=== PATIENT | male | born 1975 | race Caucasian/White ===

== ENCOUNTER → 2016-08-29 | Outpatient (CLI) | payer OTHER ==
[~2016-08-29] MED LIST: CELEXA40 MG PO; CITALOPRAM HBR20 MG PO; LORTAB LIQUID D15 ML PO; POLY VI PO; PRILOSEC DPS20 MG PO; VITAMIN D31000 UNIT PO; ZESTRIL DPS20 MG PO; ZOFRAN ODT4 MG PO
== END | disposition home or self-care (01) ==
LOC: RAD.S 08-28 11:12 → NUE 14:42 → RAD.S 14:42
DX: Z01.818 Encounter for other preprocedural examination (principal); E66.9 Obesity, unspecified; L03.116 Cellulitis of left lower limb; L03.115 Cellulitis of right lower limb
CPT/HCPCS: 258

== ENCOUNTER 2016-11-14 05:48 | Inpatient (IN) | payer SELFPAY ==
[~2016-11-14] VITALS: Ht 190.5 cm; Wt 232.1 kg
--- NOTE | 2016-11-16 16:24 | CO ---
ADMIT: 11/14/2016 RM/LOC: 617 [facility] MR#: [id number] [address] [address] LUPILLO CASEY [address] [place] [address] Consultation SEX: M AGE: 41 : 1975 DATE OF CONSULTATION: 11/14/2016 ATTENDING PHYSICIAN: Jack Thomas CONSULTING PHYSICIAN: Chad Caro MD REASON FOR CONSULTATION: Assistance with medical management. HISTORY OF PRESENT ILLNESS: The patient is a 41-year-old gentleman with a past medical history of morbid obesity, depression, obstructive sleep apnea, and chronic lower extremity lymphedema, who presents to [facility] today to undergo a scheduled laparoscopic vertical sleeve gastrectomy done by Dr. Thomas due to his morbid obesity that has been refractory to other treatments. Overall, the operative intervention went well today, and the patient is seen postoperatively. The patient notes that right now, his pain is approximately 2 or 3 out of 10 localized around the incisions. He denies chest pain, shortness of breath. Does have some mild nausea that has passed. The patient notes that he is not really hungry right now. Has a Rosen catheter in place, but also notes he has had some small amounts of flatus since arriving to the floor. PAST MEDICAL HISTORY: 1. Morbid obesity with a BMI of 63. 2. History of psoriasis with chronic lower extremity lymphedema. 3. Depression. 4. History of hernia repair in 1983. 5. History of left knee surgery in 1993. 6. History of prior lower leg severe cellulitis ulcerations. 7. Obstructive sleep apnea, not on CPAP. 8. Vitamin D deficiency. 9. History of alcoholism in the past. ALLERGIES: NO KNOWN MEDICAL ALLERGIES. MEDICATIONS: His current home medications include: 1. Phentermine. 2. Lasix. 3. Oxycodone. 4. Potassium. 5. Celexa. 6. Vitamin D. FAMILY HISTORY: Father in his 50s with heart problems. Mother is alive. REVIEW OF SYSTEMS: As noted above. All other systems reviewed and are negative. PHYSICAL EXAMINATION: VITAL SIGNS: 98.4, 85, 20, 172/84, 94% on 2 L of nasal ADMIT: 11/14/2016 RM/LOC: 617 [facility] MR#: [id number] [address] [address] LUPILLO CASEY [address] [place] [address] Consultation SEX: M AGE: 41 : 1975 cannula. GENERAL: This is a morbidly obese gentleman, in no apparent distress. He is alert, awake, oriented, and cooperative and pleasant to the examiner. HEENT: Normocephalic and atraumatic. Mucous membranes are moist. NECK: Supple. LUNGS: Clear. HEART: Regular. ABDOMEN: Obese and soft. It is nondistended right now. His bowel sounds are present. EXTREMITIES: He has changes to chronic lymphedema and psoriasis. Lower extremities, no obvious signs of infection are noted. NEUROLOGIC: Cranial nerves are intact. No focal deficit noted. LABORATORY AND X-RAY DATA: Lab work is reviewed from his preop labs on November 08. Sodium 138, potassium 3.8, BUN is 14, creatinine 0.7, his bicarb is 32, his chloride is 101. AST 23, ALT 35, alkaline phosphatase 104, total bilirubin 0.6. Hemoglobin 16.9, platelets 201,000, white count 10.2. Random glucose was 105. ASSESSMENT AND PLAN: 1. Morbid obesity refractory to medical therapies status post vertical sleeve gastrectomy. 2. Hypertension. 3. Depression. 4. Chronic edema/lymphedema/stasis dermatitis. 5. Obstructive sleep apnea, noncompliant with CPAP at home. At this point, the patient overall seems to be doing well. He is quite hypertensive postop night. Sounds like he has had some prior history of ADMIT: 11/14/2016 RM/LOC: 617 [facility] MR#: [id number] [address] [address] LUPILLO CASEY [address] [place] [address] Consultation SEX: M AGE: 41 : 1975 hypertension and was on medicines a few years ago. Then, this very well could be exacerbated by the phentermine that he is on. Just for right now, just between pain and catecholamines, we will make sure he is treated. We will use some IV hydralazine. It probably would be a good benefit or would get some benefit out of an GEREMIAS inhibitor or an ARB. Moving forward, we will follow that. We are going to hold his Celexa for right now and his Lasix today. We will watch his end tidals closely with his history of noncompliance sleep apnea and his morbid obesity. Plan PT/OT, morning labs and will follow along closely. Thank you very much for the consult. Chad Caro MD/ antonia JOB #: [id number] CC: Jack Thomas, Attending Physician Mile Downs, Family Physician
[2016-11-17] MEDS ORDERED: ZESTRIL DPS20 MG PO (12:37)
[2016-11-17] MEDS ORDERED: LORTAB LIQUID D15 ML PO (12:38)
[2016-11-17] MEDS ORDERED: PRILOSEC DPS20 MG PO (12:38)
[2016-11-17] MEDS ORDERED: ZOFRAN ODT4 MG PO (12:38)
[2016-11-17] MEDS ORDERED: CELEXA40 MG PO (12:39)
[2016-11-17] MEDS ORDERED: CITALOPRAM HBR20 MG PO (12:39)
[2016-11-17] MEDS ORDERED: POLY VI PO (12:40)
[2016-11-17] MEDS ORDERED: VITAMIN D31000 UNIT PO (12:40)
--- NOTE | 2016-11-19 09:55 | OR ---
ADMIT: 11/14/2016 RM/LOC: 617 [facility] [id number] [id number] [address] [place], [place] [address] LUPILLO CASEY [address] [place] [address] Operative/Delivery Room Report SEX: M AGE: 41 : 1975 SURGERY DATE: 11/14/2016 SURGEON: Jack Thomas MD PREOPERATIVE DIAGNOSIS: Morbid obesity with a BMI of 63. POSTOPERATIVE DIAGNOSIS: Morbid obesity with a BMI of 63. PROCEDURE: Laparoscopic vertical sleeve gastrectomy. POLE INCISOR OPERATOR: Janes Almaguer MD. Assistance was necessary for laparoscopic visualization and tissue retraction. ANESTHESIA: General endotracheal. ESTIMATED BLOOD LOSS: 25 mL. DESCRIPTION OF PROCEDURE: The patient was taken to the operating room and placed supine on the operating room table. General anesthesia was established. The abdomen was prepped and draped in the standard surgical fashion. A 5 mm subcostal incision was made in the midclavicular line in the left upper quadrant. A Veress needle was advanced at this site into the peritoneal cavity. Carbon dioxide was used to insufflate the abdomen to 15 mmHg pressure. The Veress needle was withdrawn. A 5 mm Optiview trocar was placed. Laparoscope was advanced and showed intraperitoneal position with no damage to the underlying structures. Next, a 15 mm supraumbilical port; 5 mm right lateral, left lateral, and left paramedian ports were placed under visualization. The Manoj liver retractor was advanced from a 5 mm subxiphoid incision and used to retract the left lobe of the liver. There was mild early cirrhotic change to the liver. There was also splenomegaly noted. No surrounding varices were noted. The angle of His was taken down from its phrenic attachments with Harmonic Scalpel to expose the anterior left crura. Next, beginning 8 cm proximal to the pylorus on the greater curvature, the stomach was freed from the omentum with Harmonic Scalpel. The fundus was completely mobilized with division of the short gastric vessels with Harmonic to expose the left crura in its entirety. Anesthesia advanced a 38-Georgian blunt-tip Bougie along the lesser curvature of the stomach to the antrum. This was used for sizing and creation of the sleeve. The [employer] 60-mm stapler was used for division of the stomach with the Bougie in place. This began 8 cm proximal to pylorus on the greater curvature and extended to the gastroesophageal junction. Four black loads were used initially, followed by subsequent green loads for completion of the sleeve. Intersection points of the staple line were reinforced with Ligaclip. The staple line was intact and hemostatic. Additional hemostasis was provided with FloSeal on the staple ADMIT: 11/14/2016 RM/LOC: 617 [facility] MR#: [id number] [address] [id number] [place], [place] [address] [address] Operative/Delivery Room Report SEX: M AGE: 41 : 1975 line. The gastric specimen was removed through the 15 mm port site. There was no evidence of bleeding. The 19-round channel drain was placed along the staple line and exited via the left lateral port site. The Manoj liver retractor and bougie were withdrawn. The ports were removed under visualization without evidence of bleeding. The fascial margin at the 15 mm port site was approximated with the suture passer and an 0 Vicryl tie. The abdomen was allowed to deflate. The drain was secured to the skin with 2-0 silk suture. Skin edges were approximated with gregg. Local anesthetic was injected at the incisions. Sponge, needle, and instrument counts were correct at the end of the case. The patient tolerated the procedure well and transferred to the recovery area in stable condition. Jack Thomas MD/ antonia JOB #: [id number] CC: Jack Thomas, Attending Physician Mile Downs, Family Physician
== END 2016-11-16 14:25 | disposition home or self-care (01) | DRG 621 ==
LOC: WOR 05:48 → 6PED 05:48
PROVIDERS: ADMIT Surgery
PROC: 0DB64Z3 Excision of Stomach, Percutaneous Endoscopic Approach, Vertical (ICD-10-PCS; principal; 2016-11-14)
DX: E66.01 Morbid (severe) obesity due to excess calories (principal); I10 Essential (primary) hypertension; F32.9 Major depressive disorder, single episode, unspecified; G47.33 Obstructive sleep apnea (adult) (pediatric); I89.0 Lymphedema, not elsewhere classified; Z68.44 Body mass index [BMI] 60.0-69.9, adult; E55.9 Vitamin D deficiency, unspecified; I87.2 Venous insufficiency (chronic) (peripheral)